=== PATIENT | male | born 1960 | race Caucasian/White ===

== ENCOUNTER 2023-06-26 10:17 | Inpatient (IN) ==
[2023-06-25 13:44] LABS: Blood Urea Nitrogen 23 mg/dL (8-23); Calcium 9.4 mg/dL (8.6-10.4); Carbon Dioxide 25 mmol/L (22-30); Chloride 100 mmol/L (96-108); Glomerular Filtration Rate 57; Glucose 126 mg/dL (70-105)
[2023-06-25 13:48] LABS: Basophils # (Auto) 0.06 K/mcL (0.00-0.30); Basophils % (Auto) 0.6 % (0.0-2.0); Eosinophils # (Auto) 0.55 K/mcL (0.00-0.70); Eosinophils % (Auto) 5.7 % (0.0-7.0); Hematocrit 42.8 % (40.1-51.0); Hemoglobin 13.6 g/dL (13.7-17.5); Lymphocytes # (Auto) 1.04 K/mcL (1.50-4.80); Lymphocytes % (Auto) 10.8 % (15.5-49.0); Mean Cell Volume 88.4 fL (80.0-100.0); Mean Corpuscular HGB Conc 31.8 g/dL (31.0-36.0); Mean Platelet Volume 9.9 fL (8.8-12.5); Monocytes # (Auto) 0.78 K/mcL (0.10-0.90); Monocytes % (Auto) 8.1 % (1.0-12.0); Neutrophils % (Auto) 74.3 % (38.0-78.0); Platelet Count 233 K/mcL (140-440); RBC 4.84 M/mcL (4.63-6.08); WBC 9.6 K/mcL (4.5-11.0)
[2023-06-25 13:59] LABS: Estimated Average Glucose(eAG) 166 mg/dL; Hemoglobin A1C 7.4 % Hgb (4.0-6.0)
[2023-06-26] MEDS ORDERED: SUCCINYLCHOLINE 200 MG/10 ML VIAL IV ONE (11:45)
[2023-06-26] MEDS ORDERED: DEXAMETHASONE 10 MG/ML VIAL ONE (11:45)
[2023-06-26] MEDS ORDERED: ONDANSETRON 4 MG/2 ML VIAL ONE (11:45)
[2023-06-26] MEDS ORDERED: GLYCOPYRROLATE 0.2 MG/ML VIAL IV ONE (11:45)
[2023-06-26] MEDS ORDERED: fentaNYL 100 MCG/2 ML VIAL ONE (11:47)
[2023-06-26] MEDS ORDERED: PROPOFOL 200 MG/20 ML VIAL IV ONE ×2 (11:47→12:49)
[2023-06-26] MEDS: SCOPOLAMINE 1 PATCH PATCH TOPICAL ONE (12:00)
[2023-06-26] MEDS: LIDOCAINE W/EPI 1% 20 ML VIAL IJ ONE (12:50)
[2023-06-26] MEDS ORDERED: ePHEDrine 50 MG/ML AMPUL IV ONE (12:51)
[2023-06-26] MEDS ORDERED: HYDROmorphone 1 MG/ML SYRINGE ONE (12:55)
[2023-06-26] MEDS ORDERED: PHENYLephrine 1 MG/10 ML SYRINGE (ANEST) ONE (13:02)
[2023-06-26] MEDS ORDERED: LIDOCAINE 2% PF 5 ML VIAL ONE (13:15)
[2023-06-26] MEDS ORDERED: NITROGLYCERIN 0.4 MG TAB.SUBL SL PRN (13:45)
[2023-06-26] MEDS ORDERED: BENZOCAINE/MENTHOL 1 LOZENGE PO PRN (14:58)
[2023-06-26] MEDS ORDERED: IPRATROPIUM/ALBUTEROL 3 ML AMPUL.NEB NEB PRN ×2 (14:58→16:35)
[2023-06-26] MEDS ORDERED: fentaNYL 100 MCG/2 ML VIAL IV PRN (14:58)
[2023-06-26] MEDS ORDERED: PROMETHAZINE 25 MG/ML VIAL IV PRN (14:58)
[2023-06-26] MEDS ORDERED: ONDANSETRON 4 MG/2 ML VIAL IV PRN ×2 (14:58→16:35)
[2023-06-26] MEDS: BACITRACIN TOPICAL OINT 15 GM TUBE TOPICAL ONE (15:10)
[2023-06-26] MEDS ORDERED: morphine 2 MG/ML VIAL IV PRN (15:29)
[2023-06-26] MEDS: LACTATED RINGERS 1,000 ML IV SCH (16:10)
[2023-06-26] MEDS ORDERED: oxyCODONE IR 5 MG TABLET PO PRN (16:35)
[2023-06-26] MEDS ORDERED: morphine 4 MG/ML VIAL IV PRN (16:35)
[2023-06-26] MEDS ORDERED: ACETAMINOPHEN 325 MG TABLET PO PRN (16:35)
[2023-06-26] MEDS: 0.9 % SODIUM CHLORIDE 10 ML SYRINGE IV SCH (17:55)
[2023-06-26] MEDS: metFORMIN 500 MG TAB.XL.24H PO SCH (17:55)
[2023-06-26] MEDS: LOSARTAN 50 MG TABLET PO SCH (22:08)
[2023-06-26] MEDS: BACITRACIN TOPICAL OINT 15 GM TUBE TOPICAL SCH (22:08)
[2023-06-26] MEDS: DOCUSATE SODIUM 100 MG CAPSULE PO SCH (22:08)
[2023-06-26] MEDS: ATORVASTATIN 40 MG TABLET PO SCH (22:08)
[2023-06-26] MEDS: SENNOSIDES 1 TABLET PO SCH (22:08)
[2023-06-27 06:31] LABS: Basophils # (Auto) 0.01 K/mcL (0.00-0.30); Basophils % (Auto) 0.1 % (0.0-2.0); Eosinophils # (Auto) 0 K/mcL (0.00-0.70); Eosinophils % (Auto) 0 % (0.0-7.0); Hematocrit 41.2 % (40.1-51.0); Hemoglobin 13.1 g/dL (13.7-17.5); Lymphocytes # (Auto) 0.45 K/mcL (1.50-4.80); Lymphocytes % (Auto) 3.9 % (15.5-49.0); Mean Cell Volume 88.8 fL (80.0-100.0); Mean Corpuscular HGB Conc 31.8 g/dL (31.0-36.0); Mean Platelet Volume 9.6 fL (8.8-12.5); Monocytes # (Auto) 0.44 K/mcL (0.10-0.90); Monocytes % (Auto) 3.8 % (1.0-12.0); Neutrophils % (Auto) 91.9 % (38.0-78.0); Platelet Count 235 K/mcL (140-440); RBC 4.64 M/mcL (4.63-6.08); Red Cell Distribution Width 13.7 % (11.5-14.5); WBC 11.7 K/mcL (4.5-11.0)
[2023-06-27 06:57] LABS: ALT/SGPT 18 U/L (<40); AST/SGOT 18 U/L (<40); Albumin 3.6 gm/dL (3.2-5.2); Albumin/Globulin Ratio 1.6 (1.0-2.3); Alkaline Phosphatase 91 U/L (39-117); Bilirubin,Total 0.4 mg/dL (0.1-1.0); Blood Urea Nitrogen 27 mg/dL (8-23); Calcium 9.1 mg/dL (8.6-10.4); Carbon Dioxide 25 mmol/L (22-30); Chloride 100 mmol/L (96-108); Globulin 2.3 gm/dL (2.2-3.7); Glomerular Filtration Rate 57; Glucose 255 mg/dL (70-105)
[2023-06-27] MEDS: ASCORBIC ACID 500 MG TABLET PO SCH (09:19)
[2023-06-27] MEDS: ZINC SULFATE 50 MG CAPSULE PO SCH (09:19)
[2023-06-27] MEDS: METOPROLOL SUCCINATE 50 MG TAB.XL.24H PO SCH (09:20)
[2023-06-27] MEDS: VITAMIN D3 125 MCG TABLET PO SCH (09:20)
== END 2023-06-27 10:50 | disposition home or self-care (01) | DRG 822 ==
LOC: MEDSUR 10:17 → EDSTATUS 12:00
PROVIDERS: ADMIT Otolaryngology; ATTEND Otolaryngology